=== PATIENT | male | born 1955 | race Caucasian/White ===

== ENCOUNTER 2021-07-09 10:36 | Day surgery (SDC) | payer MEDICARE, MEDICAID ==
[~2021-07-09] VITALS: Ht 167.6 cm; Wt 88.5 kg
[2021-07-09] VITALS (11 sets, daily range): BP systolic 97–118; BP diastolic 56–81
[~2021-07-09 10:36] MED LIST: ACET-2971 PO; ALBU2.5V12 NEB; ASPI-1265 PO; CARV25TA2 PO; FURO-150 PO; HYDR-3686 PO; LORA1TAB PO; NITR0.4T51 SL; PANT40TA54 PO; ROSU40TA22 PO; SACU1TAB7 PO; TIOT4MIS5 INH
[2021-07-09] MEDS ORDERED: normal saline 1000ml 1,000 ML IV SCH (11:35)
[2021-07-09] MEDS ORDERED: LORazepam 0.5 MG tablet PO ONE (11:40)
[2021-07-09] MEDS ORDERED: diphenhydrAMINE 25mg capsule PO ONE (11:40)
[2021-07-09] MEDS ORDERED: verapamil 2.5 mg/ml inj IV ONE (13:15)
[2021-07-09] MEDS ORDERED: iohexol 350MG/ML 100ml bottle IV ONE (13:15)
[2021-07-09] MEDS ORDERED: fentaNYL/PF 50MCG/1 ML 2ML syringe ONE (13:15)
[2021-07-09] MEDS ORDERED: midazolam 1 mg/ML 2ml injection ONE (13:15)
[2021-07-09] MEDS ORDERED: heparin 1,000unit/ml 10ml vial 0 ML ONE (13:15)
[2021-07-09] MEDS ORDERED: nitroGLYCERIN-Tridil 50MG/D5W 0 ML IV ONE (13:16)
[2021-07-09] MEDS ORDERED: iohexol 350 MG/1 ML 200ml bottle ONE (13:23)
[2021-07-09] MEDS ORDERED: LIDOCAINE 1% w/preservative (10 MG/ML) inj. 10mL VIAL ONE ×2 (13:29)
[2021-07-09] MEDS ORDERED: HYDROcodone/acetaminophen 5mg/325mg tablet PO PRN (15:40)
[2021-07-09] MEDS ORDERED: HYDROcodone/acetaminophen 10/325mg tab PO PRN (15:40)
[2021-07-10 06:13] LABS: ISTAT HGB ART 12.9 g/dl (14.0-18.0); ISTAT Hct ART 38 %PCV (42-52); ISTAT Hct MIX 39 %PCV (42-52); ISTAT O2 SATURATION ARTERIAL 98 % (95-98); ISTAT O2 SATURATION MIX VENOUS 58 % (60-80); ISTAT SOURCE BLNK
== END 2021-07-09 21:00 | disposition home or self-care (01) ==
LOC: SSTAY O 10:36
PROVIDERS: ATTEND Internal Medicine Interventional Cardiology
DX: I35.0 Nonrheumatic aortic (valve) stenosis (principal); I25.810 Atherosclerosis of coronary artery bypass graft(s) without angina pectoris; J44.9 Chronic obstructive pulmonary disease, unspecified; G47.33 Obstructive sleep apnea (adult) (pediatric); I25.2 Old myocardial infarction; I11.0 Hypertensive heart disease with heart failure; I50.9 Heart failure, unspecified; E78.5 Hyperlipidemia, unspecified; K74.60 Unspecified cirrhosis of liver; Z95.810 Presence of automatic (implantable) cardiac defibrillator; Z72.89 Other problems related to lifestyle; Z85.828 Personal history of other malignant neoplasm of skin; Z79.899 Other long term (current) drug therapy; Z79.82 Long term (current) use of aspirin; Z88.0 Allergy status to penicillin; Z87.891 Personal history of nicotine dependence
CPT/HCPCS: 82803; 85014; 93005; 93457; 99152; 99153; C1751; C1769; J1644; J2250; J3010; J7030; Q0163; Q9967; A4620; A6258; J3490